=== PATIENT | male | born 1960 | race Caucasian/White ===

== ENCOUNTER → 2016-10-24 | Outpatient (CLI) | payer BC | LOC: CT 15:46 | DX: R10.9 Unspecified abdominal pain (principal); R50.9 Fever, unspecified; N20.0 Calculus of kidney | CPT/HCPCS: J7050; Q9962 ==

== ENCOUNTER → 2016-10-25 | Outpatient (CLI) | payer BC ==
[2016-10-25 10:15] LABS: HEMOGLOBIN 15.3 gm/dl (14.0-17.5); RED BLOOD COUNT 5.33 M/UL (4.20-5.50); WHITE BLOOD COUNT 10.5 K/UL (4.5-11.0)
[2016-10-25 10:49] LABS: BUN/CREATININE RATIO 16 (0-10)
== END ==
LOC: LAB 08:57
PROVIDERS: Nurse Practitioner Family
DX: R50.9 Fever, unspecified (principal); R10.9 Unspecified abdominal pain
CPT/HCPCS: 36415; 80048; 85025

== ENCOUNTER → 2021-01-04 | Outpatient (CLI) | payer BC ==
[~2021-01-04] MED LIST: ASPIR-LOW81 MG PO; CELEBREX200 MG PO; LISINOPRIL-HCT1 EACH PO; NITROSTAT 0.40.4 MG SL; NORVASC 5 MG TAB5 MG PO; OMEPRAZOLE40 MG PO; RANEXA500 MG PO; SINGULAIR10 MG PO; VITAMIN B-121000 MC2 SL; VITAMIN C 500500 MG PO; VITAMIN D2000 UNI1 PO
== END ==
LOC: KOH-I 12:51
DX: N28.9 Disorder of kidney and ureter, unspecified (principal)
CPT/HCPCS: 74176

== ENCOUNTER → 2021-03-09 | Day surgery (SDC) | payer BC ==
[~2021-03-09] MED LIST changes: +LOVENOX30 MG/0.3 SQ
== END | disposition home or self-care (01) ==
LOC: OR 07:00
DX: Z12.11 Encounter for screening for malignant neoplasm of colon (principal); K57.30 Diverticulosis of large intestine without perforation or abscess without bleeding; I25.10 Atherosclerotic heart disease of native coronary artery without angina pectoris; E78.5 Hyperlipidemia, unspecified; M15.9 Polyosteoarthritis, unspecified; I10 Essential (primary) hypertension; E66.01 Morbid (severe) obesity due to excess calories; G47.33 Obstructive sleep apnea (adult) (pediatric); Z99.89 Dependence on other enabling machines and devices; Z86.010 Personal history of colon polyps; Z87.891 Personal history of nicotine dependence; Z68.42 Body mass index [BMI] 45.0-49.9, adult; Z88.5 Allergy status to narcotic agent; Z79.899 Other long term (current) drug therapy
CPT/HCPCS: J2704; J7120

== ENCOUNTER → 2021-04-21 | Outpatient (CLI) | payer BC | LOC: EROP 07:38 | DX: U07.1 COVID-19 (principal) | CPT/HCPCS: 96365 ==

== ENCOUNTER 2021-09-08 21:08 | Emergency (ER) | payer BC ==
[2021-09-08 21:43] LABS: RED BLOOD COUNT 4.96 M/UL (4.20-5.50); WHITE BLOOD COUNT 6.3 K/UL (4.5-11.0)
[2021-09-08 22:02] LABS: BUN/CREATININE RATIO 17 (0-10)
== END 2021-09-09 02:34 | disposition home or self-care (01) ==
LOC: ER1 21:08
PROVIDERS: Physician Assistant Medical
DX: R07.9 Chest pain, unspecified (principal); I25.2 Old myocardial infarction; I51.9 Heart disease, unspecified; Z87.891 Personal history of nicotine dependence; Z79.01 Long term (current) use of anticoagulants; Z86.718 Personal history of other venous thrombosis and embolism; Z86.711 Personal history of pulmonary embolism
CPT/HCPCS: 71045; 80053; 82550; 82553; 83880; 84484; 85025; 85379; 85610; 99285

== ENCOUNTER → 2021-11-23 | Outpatient (CLI) | payer BC | LOC: HEART 5 15:22 | DX: M79.606 Pain in leg, unspecified (principal) ==